=== PATIENT | male | born 1975 | race Caucasian/White ===

== ENCOUNTER 2017-08-02 08:12 | Emergency (ER) | payer OTHER ==
[2017-08-02 08:22] VITALS: BP 153/96
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
== END 2017-08-02 09:30 | disposition home or self-care (01) ==
LOC: UCEAST 08:12
DX: S02.5XXA Fracture of tooth (traumatic), initial encounter for closed fracture (principal); W20.8XXA Other cause of strike by thrown, projected or falling object, initial encounter; Y93.89 Activity, other specified; Y92.9 Unspecified place or not applicable; K02.9 Dental caries, unspecified; I10 Essential (primary) hypertension; J45.909 Unspecified asthma, uncomplicated
CPT/HCPCS: 99212; G0463

== ENCOUNTER 2017-08-21 17:32 | Observation (INO) | payer OTHER ==
[2017-08-21] MEDS ORDERED: diPHENhydraMINE PO* 25 MG PO ONE (18:05)
[2017-08-21] MEDS ORDERED: predniSONE TAB* 20 MG PO ONE (18:05)
[2017-08-21 18:20] LABS: ABS Basophils 0.1 10^3/ul (0-0.2); ABS Eosinophils 0.3 10^3/ul (0-0.6); ABS Lymphocytes 2.3 10^3/ul (1.0-4.8); ABS Monocytes 0.7 10^3/ul (0-0.8); ABS Nucleated RBC 0 10^3/ul; Eosinophil % 3.1 % (0-6); Hematocrit 41 % (42-52); Hemoglobin 14.8 g/dl (14.0-18.0); Mean Corpuscular HGB Conc 36 g/dl (31-36); Mean Corpuscular Hemoglobin 31 pg (27-31); Mean Corpuscular Volume 85 fL (80-94); Mean Platelet Volume 7.1 um3 (7.4-10.4); Nucleated Red Blood Cells % 0.1; Platelet Count 210 10^3/ul (150-450); Red Blood Count 4.86 10^6/ul (4.0-5.4); Red Cell Distribution Width 13 % (10.5-15); White Blood Count 9.4 10^3/ul (3.5-10.8)
[2017-08-21 18:35] LABS: EGFR Non-African American 97.5 (>60)
[2017-08-21] MEDS ORDERED: Vancomycin(*) 1,000 MG in NS 0.9% 250 ML* 250 ML IVPB ONE (19:19)
--- NOTE | 2017-08-21 19:27 | ED ---
Skin Complaint - HPI Summary HPI Summary: Complains of bee sting to second digit of left hand 4 days ago with subsequent local swelling, pain, redness, and chills, subjective fever, MORENO. Patient has decreased flexion in second digit. No history of reaction to prior bee stings. Took Benadryl 1 on night with no relief. Has been applying Neosporin to area. Denies N/V, purulent discharge. Denies IV drug use. Medical history is HTN, asthma. - History of Current Complaint Chief Complaint: EDUpperRespComplaint Time Seen by Provider: 08/21/17 17:59 Stated Complaint: SWOLLEN LT HAND AND ARM Hx Obtained From: Patient Pain Intensity: 7 - Allergy/Home Medications Allergies/Adverse Reactions: Allergies Allergy/AdvReac Type Severity Reaction Status Date / Time No Known Allergies Allergy Verified 08/21/17 17:39 Home Medications: Home Medications NK [No Home Medications Reported] 08/21/17 [History Confirmed 08/21/17] PMH/Surg Hx/FS Hx/Imm Hx Cardiovascular History: Reports: Hx Hypertension Denies: Hx Pacemaker/ICD Respiratory History: Reports: Hx Asthma Musculoskeletal History: Reports: Other Musculoskeletal History - Left ankle surgery 2009, Other broken bones Sensory History: Denies: Hx Hearing Aid Neurological History: Reports: Hx Headaches Psychiatric History: Reports: Hx Suicide Attempt - OD Denies: Hx Panic Disorder - Surgical History Surgery Procedure, Year, and Place: broken ankle with gildardo 2008 Hx Anesthesia Reactions: No Infectious Disease History: No Infectious Disease History: Denies: Traveled Outside the [place] in Last 30 Days - Family History Known Family History: Positive: Hypertension - Social History Alcohol Use: Rare Substance Use Type: Reports: None Smoking Status (MU): Never Smoked Tobacco Review of Systems Positive: Chills Eyes: Negative Cardiovascular: Negative Respiratory: Negative Gastrointestinal: Negative Genitourinary: Negative Positive: Arthralgia, Decreased ROM Positive: Other Positive: Headache Psychological: Normal All Other Systems Reviewed And Are Negative: Yes Physical Exam - Summary Physical Exam Summary: Redness, swelling, on the dorsal surface of left hand from warmth from PIP of left second digit to dorsal surface of left hand distal to left wrist. Some redness and swelling on the volar surface at MCP of the left second digit. Decreased range of motion of MCP joint with flexion. Normal flexion and extension of left wrist and fingers 3 through 5. Tenderness to palpation on second digit and dorsal surface of back of left hand. Normal flexion and extension of left elbow. PMS intact distally. Triage Information Reviewed: Yes Vital Signs On Initial Exam: Initial Vitals Temp Pulse Resp BP Pulse Ox 98.4 F 87 16 170/110 98 08/21/17 17:39 08/21/17 17:39 08/21/17 17:39 08/21/17 17:39 08/21/17 17:39 Vital Signs Reviewed: Yes Appearance: Positive: Well-Appearing Skin: Positive: Warm Head/Face: Positive: Normal Head/Face Inspection Eyes: Positive: Normal Neck: Positive: Supple Respiratory/Lung Sounds: Positive: Clear to Auscultation Cardiovascular: Positive: Normal Abdomen Description: Positive: Nontender Musculoskeletal: Positive: Normal Neurological: Positive: Normal Psychiatric: Positive: Normal AVPU Assessment: Alert - [place] Coma Scale Best Eye Response: 4 - Spontaneous Best Motor Response: 6 - Obeys Commands Best Verbal Response: 5 - Oriented Coma Scale Total: 15 Diagnostics - Vital Signs Vital Signs Temp Pulse Resp BP Pulse Ox 08/21/17 17:39 98.4 F 87 16 170/110 98 - Laboratory Lab Results: Lab Results 08/21/17 08/21/17 08/21/17 Range/Units 18:14 18:14 18:14 WBC 9.4 (3.5-10.8) 10^3/ul RBC 4.86 (4.0-5.4) 10^6/ul Hgb 14.8 (14.0-18.0) g/dl Hct 41 L (42-52) % MCV 85 (80-94) fL MCH 31 (27-31) pg MCHC 36 (31-36) g/dl RDW 13 (10.5-15) % Plt Count 210 (150-450) 10^3/ul MPV 7.1 L (7.4-10.4) um3 Neut % (Auto) 63.7 (38-83) % Lymph % (Auto) 25.0 (25-47) % [place] % (Auto) 7.5 H (0-7) % Eos % (Auto) 3.1 (0-6) % Baso % (Auto) 0.7 (0-2) % Absolute Neuts (auto) 6.0 (1.5-7.7) 10^3/ul Absolute Lymphs (auto) 2.3 (1.0-4.8) 10^3/ul Absolute Monos (auto) 0.7 (0-0.8) 10^3/ul Absolute Eos (auto) 0.3 (0-0.6) 10^3/ul Absolute Basos (auto) 0.1 (0-0.2) 10^3/ul Absolute Nucleated RBC 0 10^3/ul Nucleated RBC % 0.1 ESR 11 (0-14) mm/Hr Sodium 136 L (139-145) mmol/L Potassium 3.7 (3.5-5.0) mmol/L Chloride 101 (101-111) mmol/L Carbon Dioxide 26 (22-32) mmol/L Anion Gap 9 (2-11) mmol/L BUN 12 (6-24) mg/dL Creatinine 0.86 (0.67-1.17) mg/dL Est GFR ( Amer) 125.4 (>60) Est GFR (Non-Af Amer) 97.5 (>60) BUN/Creatinine Ratio 14.0 (8-20) Glucose 116 H (70-100) mg/dL Lactic Acid 1.3 (0.5-2.0) mmol/L Calcium 8.9 (8.6-10.3) mg/dL Total Bilirubin 0.80 (0.2-1.0) mg/dL AST 22 (13-39) U/L ALT 29 (7-52) U/L Alkaline Phosphatase 64 (34-104) U/L C-Reactive Protein 19.81 H (< 5.00) mg/L Total Protein 7.2 (6.4-8.9) g/dL Albumin 4.3 (3.2-5.2) g/dL Globulin 2.9 (2-4) g/dL Albumin/Globulin Ratio 1.5 (1-3) Result Diagrams: 08/21/17 18:14 08/21/17 18:14 Lab Statement: Any lab studies that have been ordered have been reviewed, and results considered in the medical decision making process. - Radiology hand Xray Interpretation: No Acute Changes - Swelling second digit left hand Radiology Interpretation Completed By: Radiologist Course/Dx - Course Course Of Treatment: Complains of bee sting to second digit of left hand 4 days ago with subsequent local swelling, pain, redness, and chills, subjective fever , MORENO. No history of reaction to prior bee stings. Patient has decreased flexion in second digit. Swelling and redness and tenderness to palpation of the MCP joint of left second digit and dorsal surface of left second digit and hand. No wrist involvement. Fingers 3 through 5 normal physical exam. IV vancomycin. Consulted with Dr. Gonzalez who recommended xray, admit to medicine and observation 48 hours with IV antibiotics. - Diagnoses Provider Diagnoses: Cellulitis Discharge - Sign-Out/Discharge Documenting (check all that apply): Discharge/Admit/Transfer - Discharge Plan Condition: Stable Disposition: ADMITTED TO [facility] - Billing Disposition and Condition Condition: STABLE Disposition: [facility] [place]
--- NOTE | 2017-08-21 19:53 | RAD ---
INDICATION: Left hand injury COMPARISON: October 07, 2013 TECHNIQUE: AP, lateral, and oblique views were obtained. FINDINGS: There is no acute fracture. There is diffuse soft tissue swelling about the second digit. There is no foreign body. IMPRESSION: SOFT TISSUE SWELLING SECOND DIGIT. NO FRACTURE OR FOREIGN BODY.
[2017-08-21] MEDS ORDERED: Piperacillin/Tazobac ADVAN(*) 3.375 GM in NS 0.9% 100 ML* 100 ML IVPB ONE (20:17)
[2017-08-21] MEDS ORDERED: HYDROcodone/ACETAMIN 5-325 MG* 1 TAB PO ONE (20:21)
[2017-08-21] MEDS ORDERED: hydrALAZINE IV* 20 MG/ML VIAL IV SLOW PU ONE (21:00)
[2017-08-21] MEDS ORDERED: Vancomycin per Pharmacy* NOTE FOLLOW UP SCH (21:00)
[2017-08-21] MEDS ORDERED: Zosyn per Pharmacy* NOTE FOLLOW UP SCH (21:00)
[2017-08-21] MEDS ORDERED: diPHENhydraMINE IV* 50 MG/ML 1 ml VIAL (BENADRYL) SLOW PUSH PRN (21:01)
[2017-08-21] MEDS ORDERED: oxyCODONE/Acetamin 5/325 MG* TAB PO PRN (21:03)
[2017-08-21] MEDS ORDERED: NS 0.9% 100 ML* 0 ML ONE (22:13)
[2017-08-21] MEDS: Lisinopril TAB* 10 MG PO SCH (22:21)
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
[2017-08-22] MEDS: Vancomycin(*) 1,250 MG in NS 0.9% 250 ML* 250 ML IVPB SCH ×2 (00:41→08:06)
[2017-08-22] MEDS: ZOSYN 3.375 GM Q8H per EXTENDED INFUSION IVPB SCH ×4 (02:29→10:48)
[2017-08-22 05:46] LABS: ABS Basophils 0 10^3/ul (0-0.2); ABS Eosinophils 0 10^3/ul (0-0.6); ABS Lymphocytes 1.1 10^3/ul (1.0-4.8); ABS Monocytes 0.4 10^3/ul (0-0.8); ABS Neutrophils 7.7 10^3/ul (1.5-7.7); ABS Nucleated RBC 0 10^3/ul; Eosinophil % 0.1 % (0-6); Hematocrit 42 % (42-52); Hemoglobin 14.8 g/dl (14.0-18.0); Lymphocyte % 11.8 % (25-47); Mean Corpuscular HGB Conc 35 g/dl (31-36); Mean Corpuscular Hemoglobin 30 pg (27-31); Mean Corpuscular Volume 85 fL (80-94); Mean Platelet Volume 7.6 um3 (7.4-10.4); Nucleated Red Blood Cells % 0; Platelet Count 236 10^3/ul (150-450); Red Blood Count 4.98 10^6/ul (4.0-5.4); Red Cell Distribution Width 14 % (10.5-15); White Blood Count 9.1 10^3/ul (3.5-10.8)
[2017-08-22] MEDS: Lisinopril TAB* 10 MG PO SCH (08:07)
--- NOTE | 2017-08-22 08:24 | PN ---
Progress Note - Progress Note Date of Service: 08/22/17 Note: Pt seen and examined. Full note dictated. Pt with left 2nd digit cellulitis after bee sting. Doing better on IV abx. Would cont for 24 hours. Please discharge on oral abx. F/U with me in 1 week. [id number]. ROM as tolerated. Soaks with soapy water if any drainage noted. Relayed to primary team.
--- NOTE | 2017-08-22 12:12 | PN ---
Work Excuse - Work Note Work Note: The above employee has been evaluated on 08/22/17. The physician has instructed the employee concerning further work as described below. Mr. Coffey was admitted in our facility on 08/21/17 and was re-evaluated the following day prior to his discharge. He will need one week of recuperation at home without over-exertion of his left upper extremity. 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 Work Status: [] Blu Santillan MD [id number]
[2017-08-22 12:17] VITALS: BP 122/68
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
[2017-08-22] MEDS ORDERED: Vancomycin Trough Check NOTE FOLLOW UP ONE (18:00)
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
--- NOTE | 2017-08-27 09:42 | ED ---
Jose Rabago Stephanie, scribed for Josh Lipscomb MD on 08/21/17 at 1930 . Progress - Progress Note Progress Note: ED physician was asked to consult for Jean STAFFORD on this pt. This pt is a 42 y/o M presenting to the ED with c/o edema over the L hand s/p bee sting on . Symptoms include erythema and burning over the affected area. The pt states he took a Benadryl to attempt to control his symptoms however, his symptoms have worsened since onset. ED physician recommends blood work including CRP and ESR to rule out tenosynovitis. The pt will be started on vancomycin. Jean STAFFORD will continue with the care of the pt. Course/Dx - Diagnoses Provider Diagnoses: Cellulitis Discharge - Sign-Out/Discharge Documenting (check all that apply): Discharge/Admit/Transfer - Discharge Plan Condition: Critical Disposition: [facility]MITTED [facility] - Billing Disposition and Condition Condition: CRITICAL Disposition: [facility] The documentation as recorded by the Jose callaway Stephanie accurately reflects the service I personally performed and the decisions made by , Josh Lipscomb MD.
== END 2017-08-22 12:20 | disposition home or self-care (01) ==
LOC: ED 17:32 → UNDOADMOB 18:40 → MEDTELE 18:40 → SSU 20:58
PROVIDERS: ADMIT Hospitalist; ATTEND Student in an Organized Health Care Education/Training Program
DX: L03.114 Cellulitis of left upper limb (principal); R51 Headache; T63.441A Toxic effect of venom of bees, accidental (unintentional), initial encounter; Y92.9 Unspecified place or not applicable
CPT/HCPCS: 36415; 80053; 83605; 85025; 85652; 86140; 87040; 96365; 99284; A9270-GY; G0378; J0360; J2543; J3370; J7512

== ENCOUNTER 2017-08-23 11:52 | Emergency (ER) | payer OTHER ==
--- NOTE | 2017-08-23 13:33 | RAD ---
HISTORY: Left hand injury COMPARISONS: August 21, 2017 VIEWS: 4, Frontal, lateral, and oblique views of the left hand FINDINGS: BONE DENSITY: Normal. BONES: There is no displaced fracture. There is no appreciable erosion or periosteal reaction. JOINTS: There is no arthropathy. ALIGNMENT: There is no dislocation. SOFT TISSUES: Again noted is soft tissue swelling along the proximal phalanx of the second digit. OTHER FINDINGS: None. IMPRESSION: SOFT TISSUE SWELLING. NO ACUTE OSSEOUS INJURY. IF SYMPTOMS PERSIST, RECOMMEND REPEAT IMAGING.
[2017-08-23 14:20] VITALS: BP 0/0
--- NOTE | 2017-08-23 17:27 | ED ---
Upper Extremity Pain - HPI Summary HPI Summary: Pt. is a 48-year-old male who presents emergency department for injury to the second digit of left hand. Patient states he closeed his finger in his truck door today. Patient is concerned because he was admitted 08/21/17 for infection to the same finger after being stung by a bee. Patient states he received IV antibiotics and was discharged home on Augmentin. He should states since IV antibiotics and discharged his infection has significantly improved. Symptoms are mild in severity. Moving finger makes symptoms worse. Nothing makes symptoms better. No other significant past medical history. - History of Current Complaint Chief Complaint: EDExtremityUpper Stated Complaint: LT INDEX FINGER INJURY Time Seen by Provider: 08/23/17 12:23 Hx Obtained From: Patient - Allergies/Home Medications Allergies/Adverse Reactions: Allergies Allergy/AdvReac Type Severity Reaction Status Date / Time No Known Allergies Allergy Verified 08/21/17 17:39 PMH/Surg Hx/FS Hx/Imm Hx Previously Healthy: Yes Cardiovascular History: Reports: Hx Hypertension Denies: Hx Pacemaker/ICD Respiratory History: Reports: Hx Asthma Musculoskeletal History: Reports: Other Musculoskeletal History - Left ankle surgery 2009, Other broken bones Sensory History: Denies: Hx Contacts or Glasses, Hx Hearing Aid Opthamlomology History: Denies: Hx Contacts or Glasses Neurological History: Denies: Hx Headaches Psychiatric History: Reports: Hx Anxiety, Hx Depression, Hx Suicide Attempt - OD Denies: Hx Panic Disorder - Surgical History Surgery Procedure, Year, and Place: broken ankle with gildardo 2008 Hx Anesthesia Reactions: No Infectious Disease History: No Infectious Disease History: Denies: Hx of Known/Suspected MRSA, Traveled Outside the [place] in Last 30 Days - Family History Known Family History: Positive: Hypertension - Social History Alcohol Use: None Substance Use Type: Reports: None Smoking Status (MU): Never Smoked Tobacco Review of Systems Constitutional: Negative Positive: Other - Pain to 2nd digit right hand Positive: Other - abrasion All Other Systems Reviewed And Are Negative: Yes Physical Exam Triage Information Reviewed: Yes Vital Signs On Initial Exam: Initial Vitals Temp Pulse Resp BP Pulse Ox 98 F 89 16 149/107 99 08/23/17 12:17 08/23/17 12:17 08/23/17 12:17 08/23/17 12:17 08/23/17 12:17 Vital Signs Reviewed: Yes Appearance: Positive: Well-Appearing - Patient sitting in bed in no acute distress. Skin: Positive: Warm, Dry Head/Face: Positive: Normal Head/Face Inspection Eyes: Positive: Normal Neck: Positive: Supple Musculoskeletal: Positive: Other - Mild edema noted to the proximal right second digit of the hand. There is a superficial abrasion noted to the proximal dorsal aspect of digit. There is a small amount of serosanguineous drainage. Very faint erythema noted from prior infection. No induration or fluctuance. Full range of motion digit with pain. Neurological: Positive: Normal, CN Intact II-III Psychiatric: Positive: Normal Diagnostics - Vital Signs Vital Signs Temp Pulse Resp BP Pulse Ox 08/23/17 14:17 0 F 0 0 0/0 08/23/17 12:17 98 F 89 16 149/107 99 - Laboratory Lab Statement: Any lab studies that have been ordered have been reviewed, and results considered in the medical decision making process. Course/Dx - Course Course Of Treatment: Patient presenting for reevaluation of right second digit after closing it in car door today. Patient was concerned given his recent finger infection. Patient states that finger infection has no family improved. X-ray of finger is negative for fracture dislocation. Wound was irrigated and cleaned with Hibiclens and sterile dressing was placed. Results were discussed. Patient is concerned with possible reinfection given new injury. Explained to patient his infection is improving and he is on antibiotics. Patient became upset and did not want to leave the ER or sign his dc papers. I spoke with my ER attending, Dr. Lipscomb, who went to pt.'s room to exam him but pt. had already left ER. He was given return precautions prior to leaving initially. - Diagnoses Differential Diagnosis/HQI/PQRI: Positive: Fracture (Closed), Hematoma, Strain, Sprain Provider Diagnoses: Crush injury to finger Discharge - Sign-Out/Discharge Documenting (check all that apply): Discharge/Admit/Transfer - Discharge Plan Condition: Good Disposition: HOME Patient Education Materials: Crush Injury (ED) Referrals: [facility] PHYSICIAN REFERRAL [Outside] No Primary Care Phys,NOPCP [Primary Care Provider] - Additional Instructions: Call the [facility] referral line to establish a PCP Ice and elevate finger Keep wound clean and dry Tylenol or Motrin for pain as directed Return to ER for increased swelling, redness, or pain - Billing Disposition and Condition Condition: GOOD Disposition: HOME
== END 2017-08-23 14:17 | disposition home or self-care (01) ==
LOC: ED 11:52
DX: S67.191A Crushing injury of left index finger, initial encounter (principal); W23.0XXA Caught, crushed, jammed, or pinched between moving objects, initial encounter; Y92.9 Unspecified place or not applicable
CPT/HCPCS: 99282

== ENCOUNTER 2018-07-15 23:23 | Emergency (ER) | payer BC, OTHER ==
--- OUTSIDE RECORDS SUMMARY | 2018-07-15 23:43 | XMS REPORT | Continuity of Care Document ---
:1975 External Reference #:[id number] Author Name Roxana Rodriguez PA Address [address] [place] [address] Care Team Providers Name Role Phone Roxana Rodriguez PA Care Team Information News Production Assistant Unavailable Payers Date Identification Numbers Payment Provider Subscriber Effective: 2014 Policy Number: [id number] [facility] Ppo Siomara [employer] Number: [address] [address] PayID: [id number] KADEN Easley [phone] Advance Directives Description No Information Available Problems Date Description Provider Status Onset: 02/02/2018 Benign essential hypertension Roxana Rodriguez PA Active Family History Date Family Member(s) Observation Comments Father Diabetes, Adult Father Cancer, Prostate Father Hypertension Father Hyperlipidemia Mother Diabetes, Adult Mother due to Lung Cancer () Mother Migraine Headache Paternal Grandfather Cancer, Lung Paternal Grandfather Stroke Maternal Grandmother Stroke Social History Type Date Description Comments Sex Unknown Education Highest level completed, 12th grade Marital Status Occupation [employer] Use Denies alcohol use Quit 2015 Tobacco Use Start: Unknown Patient has never smoked Allergies, Adverse Reactions, Alerts Description No Known Drug Allergies Medications Medication Date Status Form Strength Qnty SIG Indications Ordering Provider Vitamin D-3 Active Capsules 1000Unit 90caps 2 by Juan Jose Richardson mouth Tear, every DO day Vitamin B-12 Active Tablets Sub 3000mcg 1 by Juan Jose Richardson mouth Tera, every DO day Meloxicam Active Tablets 15mg 30tabs take 1 M25.572 Juan Jose Richardson tablet Tera, daily as DO needed Lisinopril Active Tablets 10mg 90tabs 1 by I10 Richardson, 018 mouth Tera, every DO day No Active Hx Richardson, Medications 018 - Tera, DO 018 Doxycycline Hx Tablets 100mg 20tabs 1 tablet L02.211 Richardson, Hyclate 018 - by mouth Tera, twice DO 018 daily for 10 days Immunizations Description No Information Available Vital Signs Date Vital Result Comment 06/28/2018 2:04pm Weight 227.00 lb Heart Rate 74 /min BP Systolic 132 mmHg BP Diastolic 98 mmHg Respiratory Rate 18 /min Height 72.5 inches 6'0.50" BMI (Body Mass Index) 30.4 kg/m2 02/06/2018 2:00pm Body Temperature 98.9 F Weight 229.00 lb Heart Rate 88 /min BP Systolic 142 mmHg BP Diastolic 94 mmHg Respiratory Rate 18 /min Height 72.5 inches 6'0.50" BMI (Body Mass Index) 30.6 kg/m2 Results Test Date Facility Test Result H/L Range Note CBC with Auto Diff-fcmg 02/06/2018 [facility] WBC 6.8 K/uL 4.1-11.0 RBC 5.26 M/uL 4.60-6.10 Hemoglobin 15.5 gm/dL 13.5-18.0 Hematocrit 44.1 % 41.0-53.0 MCV 83.8 fL 80.0-97.0 MCH 29.5 pg 27.0-32.0 MCHC 35.2 g/dL 32.0-36.0 RDW 13.6 % 11.5-14.5 PLT Count 249 K/ul 140-400 MPV 7.4 FL 7.1-10.7 Neutrophil 56.1 % 35.0-75.0 Lymphocyte 31.6 % 16.0-52.0 Monocyte 8.6 % 2.0-10.0 Eosinophil 3.0 % 0.0-5.0 Basophil 0.7 % 0.0-4.0 Abs Neutrophils 3.8 K/uL 2.1-8.0 Abs Lymphocytes 2.2 K/uL 0.8-5.5 Abs Monocytes 0.6 K/uL 0.1-1.0 Abs Eosinophils 0.2 K/uL 0.0-0.5 Abs Basophils 0.0 K/uL 0.0-0.3 Comprehensive Met Panel-[facility]CMG 02/06/2018 [facility] Sodium 140 mmol/L 135- 146 1 Potassium 4.1 mmol/L 3.5-5.2 Chloride# 102 mmol/L 97-110 2 Carbon Dioxide 29 mmol/L 24-34 Glucose 85 mg/dL 70-105 BUN 8 mg/dL 6-26 Creatinine 0.8 mg/dL 0.5-1.4 Calcium 9.8 mg/dL 8.5-10.2 Total Protein 6.7 g/dL 6.0-8.0 Albumin 4.6 g/dL 3.6-4.9 Globulin 2.1 g/dL 2.0-3.5 A/G Ratio 2.2 Ratio 1.0-2.2 Total Bilirubin 0.4 mg/dL 0.1-1.3 Alkaline Phosphatase 64 U/L 24-140 Alt 46 U/L High 3-42 Ast 24 U/L 8-42 Melida Egfr >60 >60 3 Non Melida Egfr >60 >60 4 Anion Gap 9 mmol/L 5-15 5 Laboratory test finding 02/06/2018 [facility] TSH 1.28 uIU/mL 0.35-4.94 Lipid 02/06/2018 [facility] Cholesterol 174 mg/dL 50-199 Triglycerides 165 mg/dL 30-200 HDL 38 mg/dL 29-71 6 Chol/ HDL Ratio 4.5 ratio 4.0-6.7 VLDL 33 mg/dL High 2-29 LDL (Calc) 103 mg/dL High 20-99 7 Laboratory test finding 02/06/2018 [facility] Vitamin B12 327 pg/mL 180- 914 Vitamin D 25 Hydroxy 22 ng/mL Low 30-100 8 PSA 0.480 ng/mL 0.000-4.000 9 HIV Combo By Eia 02/06/2018 [facility] Process Control Technician HIV NON REACTIVE Non Reactive Combo Laboratory test 02/06/2018 [facility] Cytology Fluid SEE NOTE 10 finding Specimen Laboratory test 02/06/2018 [facility] Troponin I <0.06 ng/mL (0.00-0.10) 11 finding Laboratory test 02/06/2018 [facility] D-Dimer,Sensitiv 0.25 mg/L (<0.50) 12 finding e 1 Updated reference range on new analyzer 2 Updated reference range on new analyzer 3 Concerning GFR Guidelines for Americans: Normal function or mild renal disease, if clinically at risk: >/=60 mL/min Moderately decreased: 30-59 Severely decreased: 15-29 Renal failure: <15 4 Concerning GFR Guidelines: Normal function or mild renal disease, if clinically at risk: >/=60 mL/min Moderately decreased: 30-59 Severely decreased: 15-29 Renal failure: <15 Glomerular Filtration Rate (GFR) is estimated based on the MDRD equation, which assumes a steady state for creatinine as recommended by the National Kidney Disease Education Program in conjunction with the National Institutes of Health and the National Kidney Foundation. Clinical conditions in which it may be necessary to measure GFR by using clearance methods include extremes of age and body size, severe malnutrition or obesity, diseases of skeletal muscle, paraplegia or quadriplegia, vegetarian diet, rapidly changing kidney function, and calculation of the dose of potentially toxic drugs that are excreted by the kidneys. 5 Updated Reference Range -2017 6 Per NCEP ATP III Guidelines: Results lower than 40 mg/dL are suggestive of increased risk for coronary artery disease. Results > or=to 60 mg/dL are considered a negative risk factor. 7 Per NCEP ATP III Guidelines: Normal Population <130 Patients with medical conditions: CHD/DM Optimal: <100 Borderline high: 130-159 High: 160-189 Very high: >189 8 Clinical Guidelines for recommended serum 25(OH)Vitamin D Deficient at less than 20 ng/mL Insufficient at 20 to <30 ng/mL Sufficient at 30-100 ng/mL Toxicity at greater than 100 ng/mL 9 Beginning 05/23/06 PSA values assayed at [facility] uses chemiluminescence methodology manufactured by [employer] for use on the DXI analyzer. Values obtained with different assay methods or kits can not be used interchangeably. Serum PSA measurement is not an absolute test for malignancy. The PSA value should be used in conjunction with information available from clinical evaluation and other diagnostic procedures. 10 [facility]. [address] [place] [address] MISCELLANEOUS CYTOLOGY REPORT Source of Specimen(s): A: LBP Urine, Voided Clinical Diagnosis and History: R31.29 Gross Description LBP Urine, Voided: 50 cc clear yellow fluid. Final Diagnosis Specimen Adequacy Satisfactory Final Diagnosis NEGATIVE FOR HIGH-GRADE UROTHELIAL CARCINOMA. Urothelial cells, squamous cells and few scattered erythrocytes and neutrophils. Processed and screen As applicable, positive and negative controls for all immunohistochemical and/or special stains were reviewed and considered appropriate. Reported: 02/07/2018 16:56 Electronically Signed Out By Magdy Hicks MD [facility] Worker: Vesta STRICKLAND([facility]) [facility] ICD Code: R31.9 CPT Code: A: 76857D Unless otherwise specified, testing performed by [facility] [address] [place] [id number] 11 TROPONIN LEVELS TWO TIMES THE UPPER LIMIT OF NORMAL ARE MORE PREDICTIVE OF MYOCARDIAL INJURY THAN LESSER ELEVATIONS. ([facility] 361:9, 2008) Unless otherwise specified, testing performed by [facility] [place] [address] 12 Unless otherwise specified, testing performed by [facility] [address] [place] [id number] Procedures Date Code Description Status 02/06/2018 58106 Brief Emotional/Behav Assessment W/ Scoring Doc Per Completed Standard Inst Encounters Type Date Location Provider Dx Diagnosis Office Visit 02/06/2018 [facility] Roxana Rodriguez PA Z00.00 Encntr for general 2:00p adult medical exam w/o abnormal findings I10 Essential (primary) hypertension F33.0 Major depressive disorder, recurrent, mild R31.29 Other microscopic hematuria R06.02 Shortness of breath E55.9 Vitamin D deficiency, unspecified L02.211 Cutaneous abscess of abdominal wall R53.83 Other fatigue Z12.5 Encounter for screening for malignant neoplasm of prostate Z11.59 Encounter for screening for other viral diseases Z13.89 Encounter for screening for other disorder Z68.30 Body mass index (BMI) 30.0-30.9, adult Plan of Treatment Future Appointment(s):12/28/2018 2:30 pm - Roxana Rodriguez PA at [facility]2018 - Roxana Rodriguez PAI10 Essential (primary) hypertensionComments:Will resume lisinoprilMonitor BP at home and call if persistently elevatedTo ER with chest pain, palpitations, SOB, headaches, dizziness, vision changesFollow up:6 uitvtlW73.572 Pain in LEFT ankle and joints of LEFT footNew Medication: Meloxicam 15 mg - take 1 tablet daily as neededComments:Will refer to Dr. Good for evalWill try meloxicam can add tylenol prnReferral:Micah Good MD ,R23.3 Spontaneous ecchymosesComments:Petechial rash dorsum of L footSuspect related to inflammation from chronic L ankle issueContinue tomonitor, consider punch bxZ68.30 Body mass index (BMI) 30.0-30.9, adult
--- NOTE | 2018-07-16 00:45 | ED ---
Lower Extremity - HPI Summary HPI Summary: Patient is a 42-year-old male who presents emergency department for a left ankle injury. Patient notes history of fracture and fixation to left ankle in 2008. Patient states he typically has mild pain. Patient states today he was walking up a hill when he felt a pop in his foot and ankle. Patient states pain presently, worse throughout the day and he is unable to bear weight. Symptoms are mild in severity. Walking makes symptoms worse. Rest makes symptoms better. - History of Current Complaint Chief Complaint: EDExtremityLower Stated Complaint: LEFT FOOT INJURY/PAIN PER PT Time Seen by Provider: 07/15/18 23:48 Hx Obtained From: Patient Pain Intensity: 9 - Allergies/Home Medications Allergies/Adverse Reactions: Allergies Allergy/AdvReac Type Severity Reaction Status Date / Time No Known Allergies Allergy Verified 07/15/18 23:35 PMH/Surg Hx/FS Hx/Imm Hx Previously Healthy: Yes Cardiovascular History: Reports: Hx Hypertension Denies: Hx Pacemaker/ICD Respiratory History: Reports: Hx Asthma Musculoskeletal History: Reports: Other Musculoskeletal History - Left ankle surgery 2009, Other broken bones Sensory History: Denies: Hx Contacts or Glasses, Hx Hearing Aid Opthamlomology History: Denies: Hx Contacts or Glasses Neurological History: Denies: Hx Headaches Psychiatric History: Reports: Hx Anxiety, Hx Depression, Hx Suicide Attempt - OD Denies: Hx Panic Disorder - Surgical History Surgery Procedure, Year, and Place: broken ankle with gildardo 2008 Hx Anesthesia Reactions: No Infectious Disease History: No Infectious Disease History: Denies: Hx of Known/Suspected MRSA, Traveled Outside the [place] in Last 30 Days - Family History Known Family History: Positive: Hypertension - Social History Occupation: Employed Full-time Lives: With Family Alcohol Use: None Substance Use Type: Reports: None Smoking Status (MU): Never Smoked Tobacco Review of Systems Positive: Other - left ankle and foot pain Skin: Negative Negative: Weakness, Paresthesia, Numbness All Other Systems Reviewed And Are Negative: Yes Physical Exam Triage Information Reviewed: Yes Vital Signs On Initial Exam: Initial Vitals Temp Pulse Resp BP Pulse Ox 100.1 F 93 16 164/107 97 07/15/18 23:34 07/15/18 23:34 07/15/18 23:34 07/15/18 23:34 07/15/18 23:34 Vital Signs Reviewed: Yes Appearance: Positive: Well-Appearing - Pt. sitting on bed in NAD. Friend present. Skin: Positive: Warm, Dry Head/Face: Positive: Normal Head/Face Inspection Eyes: Positive: Normal, EOMI, ALEXANDER Neck: Positive: Supple Musculoskeletal: Positive: Other - Old incision scars to left ankle. Good pedial pulse. Mild diffuse edema. No calf tenderness or edema. No knee pain on palpation. No overlying wounds or erythema. Mild tenderness diffusely to ankle and dorsum of foot. Neurological: Positive: Normal, CN Intact II-III Psychiatric: Positive: Affect/Mood Appropriate Diagnostics - Vital Signs Vital Signs Temp Pulse Resp BP Pulse Ox 07/15/18 23:34 100.1 F 93 16 164/107 97 - Laboratory Lab Statement: Any lab studies that have been ordered have been reviewed, and results considered in the medical decision making process. Lower Extremity Course/Dx - Course Course Of Treatment: Pt. presenting for increased ankle and foot pain after a fall. Xrays reviewed by myself show surgical and chronic changes without acute findings. Advised pt. radiologist will overread in the am. Pt. stating pain is too great to bear weight. Air splint and crutches placed. Will have pt. f.u with ortho if pain persist. Ice and elevate. Tylenol or Motrin for pain as directed. Pt. understands and agrees with plan. - Diagnoses Differential Diagnosis/HQI/PQRI: Positive: Contusion, Fracture (Closed), Sprain , Strain Provider Diagnoses: Ankle sprain, Foot sprain Discharge - Sign-Out/Discharge Documenting (check all that apply): Patient Departure Patient Received Moderate/Deep Sedation with Procedure: No - Discharge Plan Condition: Good Disposition: HOME Patient Education Materials: Foot Sprain (ED) Referrals: Devon Khan MD [Medical Doctor] - Additional Instructions: Schedule a follow up appointment with orthopedics Ice and elevate Wear splint for comfort Tylenol or Motrin for pain as directed Return to ER if symptoms change or worsen - Billing Disposition and Condition Condition: GOOD Disposition: Home
[2018-07-16 02:02] VITALS: BP 166/103
== END 2018-07-16 02:01 | disposition home or self-care (01) ==
LOC: ED 23:23
DX: S93.402A Sprain of unspecified ligament of left ankle, initial encounter (principal); S93.602A Unspecified sprain of left foot, initial encounter; M79.672 Pain in left foot; X50.9XXA Other and unspecified overexertion or strenuous movements or postures, initial encounter; Y92.9 Unspecified place or not applicable
CPT/HCPCS: 99282